=== PATIENT | female | born 1935 | race Hispanic/Latino ===

== ENCOUNTER 2017-07-26 07:02 | Day surgery (SDC) | payer MEDICARE ==
[~2017-07-26] VITALS: Ht 154.9 cm; Wt 58.2 kg
[~2017-07-26 07:02] MED LIST: SODIUM CHLORIDE 0.9% 1000ML 1,000 ML IV ONE
[2017-07-26 08:27] VITALS: BP 215/64
[2017-07-26 10:13] VITALS: BP 143/70
== END 2017-07-26 11:00 | disposition home or self-care (01) ==
LOC: DAH 07:02 → ENDO 07:02
PROVIDERS: ATTEND Internal Medicine
DX: K83.8 Other specified diseases of biliary tract (principal); K31.89 Other diseases of stomach and duodenum; I10 Essential (primary) hypertension; K29.50 Unspecified chronic gastritis without bleeding; M19.90 Unspecified osteoarthritis, unspecified site; K21.9 Gastro-esophageal reflux disease without esophagitis; M81.0 Age-related osteoporosis without current pathological fracture; Z79.82 Long term (current) use of aspirin; Z79.899 Other long term (current) drug therapy; Z90.49 Acquired absence of other specified parts of digestive tract; Z98.890 Other specified postprocedural states
CPT/HCPCS: 43231; 43237; 43239; 88304; 88305; 88312; 93005; A4606; J7030